=== PATIENT | male | born 1935 | race Caucasian/White ===

== ENCOUNTER 2016-06-17 16:20 | Inpatient (IN) | payer MEDICARE, OTHER ==
[~2016-06-17] VITALS: Ht 162.6 cm; Wt 96.7 kg
[2016-06-17 16:24] VITALS: BP 146/65; PULSE 86; RESP 24; TEMP 98.1; O2SAT 89
[2016-06-17] MEDS ORDERED: SODIUM CHLOR 0.9% 1000 ML INJ 1,000 ML IV SCH (16:46)
[2016-06-17] MEDS ORDERED: METF1000 PO (16:52)
[2016-06-17] MEDS ORDERED: ASPI81CH CHEW (16:52)
[2016-06-17] MEDS ORDERED: LANTUS2P SQ (16:52)
[2016-06-17] MEDS ORDERED: bp med (16:52)
--- NOTE | 2016-06-17 16:56 | PD ---
HPI Chief Complaint: Abdominal Pain Time Seen by Provider: 16:49 Travel History International Travel<30 days: No Contact w/Intl Traveler<30days: No Traveled to known affect area: No History of Present Illness HPI 80-year-old male presents with PMH of DM, HTN presents to the ED for evaluation of 3 day history of right upper quadrant abdominal pain. 9/10 maximally, 4/10 on presentation. Gradual onset. Patient endorses anorexia, subjective fevers, occasional dysuria. He denies nausea, vomiting, changes in bowel habits. Denies chest pain, shortness of breath, palpitations. Last bowel movement this morning, well formed, nonbloody. Patient is a daily or "every few days" drinker. Patient endorses history of laparoscopic cholecystectomy in spring. He is on vacation from [place]. NKDA. [facility] Social History Tobacco Use: No Allergies-Medications (Allergen,Severity, Reaction): Coded Allergies: No Known Allergies (Unverified , 06/17/16) Reported Meds & Prescriptions Reported Meds & Active Scripts Active Reported [bp med] Aspirin 81 Mg Chew 81 Mg CHEW DAILY Lantus Inj (Insulin Glargine) 1,000 Unit/10 Ml Vial 16 Units SQ HS Metformin (Metformin HCl) 1,000 Mg Tab 1,000 Mg PO BIDPC With meals Review of Systems Except as stated in HPI: all other systems reviewed are Neg Physical Exam Narrative GENERAL: Well-nourished, well-developed elderly white male in no acute distress. SKIN: Warm and dry. Faintly jaundiced. Small well-healed scars on the abdomen , consistent with laparoscopic ports, without signs of infection. HEAD: Normocephalic. Right-sided hearing aid in place. EYES: No scleral icterus. No injection or drainage. NECK: Supple, trachea midline. No JVD or lymphadenopathy. CARDIOVASCULAR: Regular rate and rhythm without murmurs, gallops, or rubs. RESPIRATORY: Breath sounds clear and equal bilaterally. No accessory muscle use. GASTROINTESTINAL: Abdomen protuberant, soft , mildly distended. Tender to palpation in the suprapubic area and right upper quadrant. MUSCULOSKELETAL: No cyanosis, or edema. The patient is ambulatory, moves extremities spontaneously. BACK: Nontender without obvious deformity. No CVA tenderness. Data Data Last Documented VS Vital Signs Date Time Temp Pulse Resp B/P Pulse Ox O2 Delivery O2 Flow Rate FiO2 1/13/17 19:21 90 Room Air 06/17/16 19:21 2 06/17/16 16:24 98.1 86 24 146/65 Orders Complete Blood Count With Diff (06/17/16 16:24) Comprehensive Metabolic Panel (06/17/16 16:24) Urinalysis - C+S If Indicated (06/17/16 16:24) Iv Access Insert/Monitor (06/17/16 16:24) Oxygen Administration (06/17/16 16:24) Oximetry (06/17/16 16:24) Lipase (06/17/16 16:24) Electrocardiogram (06/17/16 ) Lactic Acid (06/17/16 16:24) Blood Glucose (06/17/16 16:46) Ondansetron Inj (Zofran Inj) (06/17/16 17:00) Morphine Inj (Morphine Inj) (06/17/16 17:00) Ct Abd/Pel W Iv Contrast(Rout) (06/17/16 16:46) Sodium Chlor 0.9% 1000 Ml Inj (Ns 1000 M (06/17/16 16:46) Iohexol 350 Inj (Omnipaque 350 Inj) (06/17/16 17:58) Sodium Chlor 0.9% 1000 Ml Inj (Ns 1000 M (06/17/16 19:00) NPO (06/17/16 18:51) Piperacil-Tazo 3.375 Gm Premix (Zosyn 3. (06/17/16 19:00) Labs Laboratory Tests Test 06/17/16 06/17/16 16:30 18:53 White Blood Count 11.7 TH/MM3 Red Blood Count 4.53 MIL/MM3 Hemoglobin 13.4 GM/DL Hematocrit 39.1 % Mean Corpuscular Volume 86.4 FL Mean Corpuscular Hemoglobin 29.5 PG Mean Corpuscular Hemoglobin 34.1 % Concent Red Cell Distribution Width 13.9 % Platelet Count 138 TH/MM3 Mean Platelet Volume 9.3 FL Neutrophils (%) (Auto) 87.1 % Lymphocytes (%) (Auto) 4.7 % Monocytes (%) (Auto) 8.0 % Eosinophils (%) (Auto) 0.0 % Basophils (%) (Auto) 0.2 % Neutrophils # (Auto) 10.2 TH/MM3 Lymphocytes # (Auto) 0.6 TH/MM3 Monocytes # (Auto) 0.9 TH/MM3 Eosinophils # (Auto) 0.0 TH/MM3 Basophils # (Auto) 0.0 TH/MM3 CBC Comment DIFF FINAL Differential Comment Sodium Level 132 MEQ/L Potassium Level 3.3 MEQ/L Chloride Level 97 MEQ/L Carbon Dioxide Level 22.9 MEQ/L Anion Gap 12 MEQ/L Blood Urea Nitrogen 17 MG/DL Creatinine 0.91 MG/DL Estimat Glomerular Filtration 80 ML/MIN Rate Random Glucose 181 MG/DL Lactic Acid Level 2.2 mmol/L Calcium Level 9.5 MG/DL Total Bilirubin 6.6 MG/DL Aspartate Amino Transf 72 U/L (AST/SGOT) Alanine Aminotransferase 168 U/L (ALT/SGPT) Alkaline Phosphatase 138 U/L Total Protein 7.4 GM/DL Albumin 3.2 GM/DL Lipase 75 U/L Urine Color DARK-YELLOW Urine Turbidity HAZY Urine pH 6.0 Urine Specific [place] Urine Protein 30 mg/dL Urine Glucose (UA) NEG mg/dL Urine Ketones NEG mg/dL Urine Occult Blood TRACE Urine Nitrite NEG Urine Bilirubin MOD Urine Urobilinogen 2.0 MG/DL Urine Leukocyte Esterase NEG Urine RBC 17 /hpf Urine WBC 6 /hpf Urine Squamous Epithelial <1 /hpf Cells Microscopic Urinalysis Comment CULT NOT INDICATED MDM Medical Decision Making Medical Screen Exam Complete: Yes Emergency Medical Condition: Yes Differential Diagnosis Biliary colic versus pancreatitis versus common duct obstruction versus cholangitis versus urinary tract infection versus gastritis versus enteritis versus other Narrative Course 80-year-old male presents with PMH of DM, HTN presents to the ED for evaluation of 3 day history of right upper quadrant abdominal pain. 02/12 maximally, 4/10 on presentation. Gradual onset. Patient endorses anorexia, subjective fevers, occasional dysuria. He denies nausea, vomiting, changes in bowel habits. Denies chest pain, shortness of breath, palpitations. Last bowel movement this morning, well formed, nonbloody. Patient is a daily or "every few days" drinker. Patient endorses history of laparoscopic cholecystectomy in spring. He is on vacation from [place]. Vitals reviewed. Physical exam reveals a nontoxic-appearing, faintly jaundiced white male in no acute distress. Chest is clear to auscultation bilaterally. The abdomen is tender in the right upper quadrant and suprapubic areas. Remaining physical exam unremarkable. IV was established. Patient was administered morphine and Zofran. CBC: WBC 11.7. Hemoglobin 13.4. BMP: Sodium 132, chloride 97, potassium 3.3 Lactic 2.2. LFTs: Bilirubin 6.6, AST 72, ALT 168. Alkaline phosphatase 138. CT abdomen and pelvis: 1. Dilated intra and extrahepatic biliary ductal dilatation with a questionable filling defect at the distal common bile duct. This could be further evaluated with an ERCP or an MRCP. The dilatation of the bile duct can be secondary to a reservoir phenomenon following cholecystectomy. 2. Fatty infiltration of the liver. 3. Scattered colonic diverticula in the sigmoid region. The patient, workup and plan of care were discussed with Dr. Noonan who agrees. Call placed to the on-call animal bounty hunter. I spoke with Dr. Bonilla who requests IV antibiotics, the patient be made nothing by mouth consented for ERCP , planned procedure tomorrow morning. GI consult placed. IV Zosyn administered. I spoke with Dr. Esparza who agrees to accept the patient to the medical service. See GI medicine notes for disposition. Sepsis Criteria Severe Sepsis (+one): Lactate >2 Diagnosis Primary Impression: Common bile duct obstruction Additional Impressions: Hyperbilirubinemia Elevated lactic acid level Aileen Lewis Jun 17, 2016 16:56
[2016-06-17] MEDS ORDERED: ONDANSETRON HCL 4 MG/2 ML VIAL IV PUSH ONE (17:00)
[2016-06-17] MEDS ORDERED: MORPHINE SULFATE 4 MG/ML INJ IV PUSH ONE (17:00)
[2016-06-17 17:06] LABS: AUTOMATED NEUTROPHIL # 10.2 TH/MM3 (1.8-7.7); BASOPHIL % 0.2 % (0.0-2.0); HEMATOCRIT 39.1 % (39.0-51.0); HEMO FLAGS DIFF FINAL; LYMPH % 4.7 % (9.0-44.0); LYMPHOCYTE # 0.6 TH/MM3 (1.0-4.8); MEAN CELL VOLUME 86.4 FL (80.0-100.0); MEAN CORPUSCULAR HEMOGLOBIN 29.5 PG (27.0-34.0); MEAN CORPUSCULAR HGB CONC 34.1 % (32.0-36.0); NEUT % 87.1 % (16.0-70.0); PLATELET COUNT 138 TH/MM3 (150-450); RED BLOOD COUNT 4.53 MIL/MM3 (4.50-5.90); RED CELL DISTRIBUTION WIDTH 13.9 % (11.6-17.2); WHITE BLOOD COUNT 11.7 TH/MM3 (4.0-11.0)
[2016-06-17 17:21] LABS: ANION GAP 12 MEQ/L (5-15); BICARBONATE 22.9 MEQ/L (21.0-32.0); BLOOD UREA NITROGEN 17 MG/DL (7-18); CHLORIDE 97 MEQ/L (98-107); POTASSIUM 3.3 MEQ/L (3.5-5.1); SODIUM (NA) 132 MEQ/L (136-145)
[2016-06-17 17:28] LABS: ALKALINE PHOSPHATASE 138 U/L (45-117); ALT (GPT) 168 U/L (12-78); AST (GOT) 72 U/L (15-37); GLOMERULAR FILTRATION RATE 80 ML/MIN (>89); TOTAL BILIRUBIN ADULT 6.6 MG/DL (0.2-1.0)
[2016-06-17] MEDS ORDERED: IOHEXOL 350 MG/ML 10 ML VIAL (for RAD DIAG) IV ONE (17:58)
--- NOTE | 2016-06-17 18:28 | RADRPT ---
EXAM DATE/TIME: 06/17/2016 17:54 [facility] COMPARISON: No previous studies available for comparison. INDICATIONS : Bilateral upper quadrant abdominal pain for 3 days. IV CONTRAST: 91 cc Omnipaque 350 (iohexol) IV ORAL CONTRAST: No oral contrast ingested. RADIATION DOSE: 14.80 CTDIvol (mGy) MEDICAL HISTORY : Hypertension. Diabetes mellitus type 2. SURGICAL HISTORY : Cholecystectomy. ENCOUNTER: Initial ACUITY: 3 days PAIN SCALE: 5/10 LOCATION: Bilateral upper quadrant Abdomen/pelvis TECHNIQUE: Volumetric scanning of the abdomen and pelvis was performed. Using automated exposure control and adjustment of the mA and/or kV according to patient size, radiation dose was kept as low as reasonably achievable to obtain optimal diagnostic quality images. FINDINGS: There is intra and extrahepatic biliary ductal dilatation with the common duct measurin g up to 1.4 cm. The patient is status post cholecystectomy and this may reflect a reservoir phenomen on. There is some questionable increased density at the distal common bile duct seen on the axial i mages. A distal obstruction cannot be excluded. There is diffuse decreased attenuation of the liver consistent with diffuse fatty infiltration. The spleen, adrenal glands and kidneys are unremarkable. The pancreatic duct is mildly prominent measuri ng 3 mm. The pancreas is otherwise normal. There are mildly enlarged lymph nodes seen in the celiac region measuring up to 2.3 x 1.4 cm. These are nonspecific. There are scattered diverticula seen in the sigmoid region. Significant inflammatory change is not se en. Significantly dilated or thickened bowel is not appreciated. There is scattered atherosclerotic calcifications seen at the aorta but no aneurysm is present. Pelvic mass is not seen. There is some increased density seen at the posterior lung bases likely representing dependent atelec tasis. Otherwise the lung bases are grossly clear. Coronary artery calcifications are present. The re is degenerative change in the lumbar spine. CONCLUSION: 1. Dilated intra and extrahepatic biliary ductal dilatation with a questionable filling defect at the distal common bile duct. This could be further evaluated with an ERCP or an MRCP. The dilatation o f the bile duct can be secondary to a reservoir phenomenon following cholecystectomy. 2. Fatty infiltration of the liver. 3. Scattered colonic diverticula in the sigmoid region. Casey Ruvalcaba MD on June 17, 2016 at 18:04 Board Certified Radiologist. This report was verified electronically.
[2016-06-17] MEDS ORDERED: PIPERACIL-TAZO 3.375 GM PREMIX 50 ML IV ONE (19:00)
[2016-06-17] MEDS ORDERED: SODIUM CHLOR 0.9% 1000 ML INJ 1,000 ML IV ONE (19:00)
[2016-06-17 19:18] LABS: BLOOD, URINE TRACE (NEG); COMMENT (UR) CULT NOT INDICATED; CULTURE IF INDICATED CULT NOT INDICATED; GLUCOSE,URINE NEG (NEG); KETONE, URINE NEG (NEG); NITRITE,URINE NEG (NEG); SQUAMOUS EPITHELIAL CELL URINE <1 /hpf (0-5); URINE COLOR DARK-YELLOW (YELLW/STRAW)
[2016-06-17 19:21] VITALS: O2SAT 90
[2016-06-17] MEDS ORDERED: SODIUM CHLORIDE 0.9% FLUSH 5 ML FLUSH FLUSH PRN (19:30)
[2016-06-17] MEDS ORDERED: BISACODYL 10 MG SUPP PR PRN (19:30)
[2016-06-17] MEDS ORDERED: ACETAMINOPHEN 325 MG TAB PO PRN (19:30)
[2016-06-17] MEDS ORDERED: GLUCAGON 1 MG/ML VIAL OTHER PRN (19:30)
[2016-06-17] MEDS ORDERED: ONDANSETRON HCL 4 MG/2 ML VIAL IVP PRN (19:30)
[2016-06-17] MEDS ORDERED: DEXTROSE 50% IN WATER 50 ML VIAL(D50) IV PUSH PRN (19:30)
--- NOTE | 2016-06-17 19:34 | HHI.HP ---
[facility] Non-Staff Admission Diagnosis lactic acidosis, hyperbilirubinemia, possible CBD obstruction Diagnoses: (1) Hyperbilirubinemia Diagnosis: Principal (2) Common bile duct obstruction Diagnosis: Principal (3) Lactic acidosis Diagnosis: Principal (4) Leukocytosis Diagnosis: Principal (5) DM (diabetes mellitus) Diagnosis: Principal Travel History International Travel<30 Days: No Contact w/Intl Traveler <30 Da: No Traveled to Known Affected Are: No History of Present Illness This is an 80-year-old male with a PMH of HTN and DM who came to the ER with complaints of abdominal pain x3 days w/ associated subjective fever, chills. Denies nausea, vomiting or diarrhea. On arrival, BP 146/65, HR 86, O2 sat 98% on RA, Afebrile. WBC 11.7. Platelets 138, no previous labs for comparison. K + 3.3. Lactic Acid 2.2. LFTs elevated, no previous labs for comparison. CT Abd/Pelvis w/ dilated intra-and extrahepatic biliary ductal dilatation with questionable filling defect at distal CBD. Dr. Bonilla w/ GI consulted by ER physician, recommended IV Abx and will eval in am for ERCP. S/p Zosyn IV in ER. Review of Systems Other ROS: 14 point review of systems otherwise negative. Past Family Social History Past Medical History PMH: HTN and DM Past Surgical History PAST SURGICAL HISTORY: Tonsillectomy, Cholecystectomy Allergies: Coded Allergies: No Known Allergies (Unverified , 06/17/16) Family History PAST FAMILY HISTORY: Reviewed, positive for DM. Social History PAST SOCIAL HISTORY: Negative for tobacco or drugs. Drinks occasionally. Physical Exam Vital Signs Vital Signs Date Time Temp Pulse Resp B/P Pulse Ox O2 Delivery O2 Flow Rate FiO2 06/17/16 19:21 90 Room Air 06/17/16 19:21 97 Nasal Cannula 2 06/17/16 16:48 98 Room Air 06/17/16 16:24 98.1 86 24 146/65 89 Room Air Physical Exam PE: GENERAL: Elderly male in no acute distress. HEENT: PERRLA, EOMI. No scleral icterus or conjunctival pallor. No lid lag or facial droop. Jaundice. CARDIOVASCULAR: Regular rate and rhythm. No obvious murmurs to auscultation. No chest tenderness to palpation. RESPIRATORY: No obvious rhonchi or wheezing. Clear to auscultation. Breath sounds equal bilaterally. GASTROINTESTINAL: Abdomen soft, mild generalized tenderness to palpation, nondistended. BS normal. MUSCULOSKELETAL: Extremities without clubbing, cyanosis, or edema. No obvious deformities. NEUROLOGICAL: Awake, alert and oriented x4. No focal neurologic deficits. Moving both upper and lower extremities spontaneously. Laboratory Laboratory Tests Test 06/17/16 06/17/16 16:30 18:53 White Blood Count 11.7 Red Blood Count 4.53 Hemoglobin 13.4 Hematocrit 39.1 Mean Corpuscular Volume 86.4 Mean Corpuscular Hemoglobin 29.5 Mean Corpuscular Hemoglobin 34.1 Concent Red Cell Distribution Width 13.9 Platelet Count 138 Mean Platelet Volume 9.3 Neutrophils (%) (Auto) 87.1 Lymphocytes (%) (Auto) 4.7 Monocytes (%) (Auto) 8.0 Eosinophils (%) (Auto) 0.0 Basophils (%) (Auto) 0.2 Neutrophils # (Auto) 10.2 Lymphocytes # (Auto) 0.6 Monocytes # (Auto) 0.9 Eosinophils # (Auto) 0.0 Basophils # (Auto) 0.0 CBC Comment DIFF FINAL Differential Comment Sodium Level 132 Potassium Level 3.3 Chloride Level 97 Carbon Dioxide Level 22.9 Anion Gap 12 Blood Urea Nitrogen 17 Creatinine 0.91 Estimat Glomerular Filtration 80 Rate Random Glucose 181 Lactic Acid Level 2.2 Calcium Level 9.5 Total Bilirubin 6.6 Aspartate Amino Transf 72 (AST/SGOT) Alanine Aminotransferase 168 (ALT/SGPT) Alkaline Phosphatase 138 Total Protein 7.4 Albumin 3.2 Lipase 75 Urine Color DARK-YELLOW Urine Turbidity HAZY Urine pH 6.0 Urine Specific [employer] Urine Protein 30 Urine Glucose (UA) NEG Urine Ketones NEG Urine Occult Blood TRACE Urine Nitrite NEG Urine Bilirubin MOD Urine Urobilinogen 2.0 Urine Leukocyte Esterase NEG Urine RBC 17 Urine WBC 6 Urine Squamous Epithelial <1 Cells Microscopic Urinalysis Comment CULT NOT INDICATED Result Diagram: 06/17/16 1630 06/17/16 1630 Assessment and Plan Problem List: (1) Hyperbilirubinemia ICD Code: E80.6 Status: Acute (2) Common bile duct obstruction ICD Code: K83.1 Status: Acute (3) Lactic acidosis ICD Code: E87.2 Status: Acute (4) Leukocytosis ICD Code: D72.829 Status: Acute (5) DM (diabetes mellitus) ICD Code: E11.9 Status: Acute Assessment and Plan A/P: 1. CBD Obstruction: c/o abdominal pain x2-3 days, CT Abd/Pelvis w/ dilated intra-and extra hepatic biliary ductal dilatation with questionable filling defect at distal CBD, images reviewed by me. Dr. Bonilla consulted by ER physician, recommendation for IV Abx w/ plan for ERCP in am. Analgesics/ antiemetics as needed. NPO, IVF. 2. Hyperbilirubinemia: secondary to above w/ possible CBD obstruction, repeat labs in am. 3. Lactic Acidosis: Lactate 2.2. WBC 11, however lactic acidosis not seemingly related to infection. IVF, repeat labs in am. 4. DM: Sliding scale w/ Accu-Cheks. 5. DVT Prophylaxis: SCD/Teds. 6. Social work for d/c planning as needed. 7. Case discussed w/ ER physician at length. Physician Certification 2 Midnight Certification Type: Admission for Inpatient Services Order for Inpatient Services The services are ordered in accordance with Medicare regulations or non- Medicare payer requirements, as applicable. In the case of services not specified as inpatient-only, they are appropriately provided as inpatient services in accordance with the 2-midnight benchmark. Estimated LOS (days): 2 days is the estimated time the patient will need to remain in the hospital, assuming treatment plan goals are met and no additional complications. Post-Hospital Plan: Not yet determined Sera Esparza MD Jun 17, 2016 19:34
[2016-06-17 20:23] VITALS: BP 156/63
[2016-06-17] MEDS: SODIUM CHLOR 0.9% 1000 ML INJ 1,000 ML IV SCH (20:26)
[2016-06-17] MEDS: INSULIN ASPART SUPPLEMENTAL SCALE SQ SCH (21:00)
[2016-06-17 21:25] VITALS: BP 131/63; PULSE 88; RESP 20; TEMP 98; O2SAT 98
[2016-06-17] MEDS: MORPHINE SULFATE 4 MG/ML INJ IV PRN (22:11)
[2016-06-17] MEDS: SODIUM CHLORIDE 0.9% FLUSH 5 ML FLUSH FLUSH SCH (22:12)
[2016-06-17 22:49] VITALS: O2SAT 92
[2016-06-18] VITALS (7 sets, daily range): BP systolic 125–138; BP diastolic 63–74; PULSE 78–96; RESP 18–24; TEMP 97.7–100.1; O2SAT 90–94
[2016-06-18] MEDS: PIPERACIL-TAZO 3.375 GM PREMIX 50 ML IV SCH ×4 (00:24→18:16)
[2016-06-18] MEDS: SODIUM CHLOR 0.9% 1000 ML INJ 1,000 ML IV SCH ×3 (05:36→20:45)
[2016-06-18] MEDS: MORPHINE SULFATE 4 MG/ML INJ IV PRN ×3 (05:45→20:46)
[2016-06-18 06:38] LABS: AUTOMATED NEUTROPHIL # 5.8 TH/MM3 (1.8-7.7); BASOPHIL % 0.3 % (0.0-2.0); EOSINOPHIL % 0.2 % (0.0-4.0); HEMATOCRIT 36.3 % (39.0-51.0); HEMO FLAGS DIFF FINAL; LYMPH % 8.8 % (9.0-44.0); LYMPHOCYTE # 0.6 TH/MM3 (1.0-4.8); MEAN CELL VOLUME 87.3 FL (80.0-100.0); MEAN CORPUSCULAR HEMOGLOBIN 29.9 PG (27.0-34.0); MEAN CORPUSCULAR HGB CONC 34.2 % (32.0-36.0); MONO % 9.7 % (0.0-8.0); PLATELET COUNT 120 TH/MM3 (150-450); RED BLOOD COUNT 4.15 MIL/MM3 (4.50-5.90); RED CELL DISTRIBUTION WIDTH 14.2 % (11.6-17.2); WHITE BLOOD COUNT 7.1 TH/MM3 (4.0-11.0)
[2016-06-18] MEDS: INSULIN ASPART SUPPLEMENTAL SCALE SQ SCH ×4 (07:00→21:10)
[2016-06-18 07:11] LABS: ALKALINE PHOSPHATASE 128 U/L (45-117); ALT (GPT) 123 U/L (12-78); ANION GAP 11 MEQ/L (5-15); AST (GOT) 61 U/L (15-37); BICARBONATE 21.9 MEQ/L (21.0-32.0); BLOOD UREA NITROGEN 16 MG/DL (7-18); CHLORIDE 103 MEQ/L (98-107); GLOMERULAR FILTRATION RATE 102 ML/MIN (>89); POTASSIUM 3.3 MEQ/L (3.5-5.1); SODIUM (NA) 136 MEQ/L (136-145); TOTAL BILIRUBIN ADULT 6.7 MG/DL (0.2-1.0)
[2016-06-18] MEDS: SODIUM CHLORIDE 0.9% FLUSH 5 ML FLUSH FLUSH SCH ×2 (09:34→20:46)
--- NOTE | 2016-06-18 09:40 | PD.CONS ---
HPI History of Present Illness This is a very pleasant 80 year old white male with past medical history of HTN , DM, Cholecystectomy in October due to stones is here with complaints of acute severe abdominal pain across the upper region, this is 10 on the scale from 0-10 , constant, grabbing in nature, began on Monday. He tried management at home with radha-seltzer, Tums, Ibuprofen with out much relief so he came to the hospital. He also noticed some yellow discoloration around the eyes. He reports some associated subjective fever, chills, and dark urine. Denies nausea, vomiting or diarrhea. On admission, labs revealed WBC 11.7. K 3.3. Lactic Acid 2.2. LFTs elevated, Hyperbilirubinemia, no previous labs for comparison. CT Abd/Pelvis w/ dilated intra-and extrahepatic biliary ductal dilatation with questionable filling defect at distal CBD. (Yaquelin Galeas) PFSH Past Medical History PMH: HTN and DM Past Surgical History PAST SURGICAL HISTORY: Tonsillectomy, Cholecystectomy (Yaquelin Galeas) Coded Allergies: No Known Allergies (Unverified , 06/17/16) Medications Current Medications Medications (Trade) Dose Ordered Sig/Lionel Route Start Time Stop Time Status Last Admin (D50w (Vial) Inj) 25 ml UNSCH PRN IV PUSH 06/17/16 19:30 Glucagon 1 mg 1 mg UNSCH PRN OTHER 06/17/16 19:30 Piperacillin Sod/ Tazobactam Sod 50 ml @ 100 mls/hr Q6H IV 06/18/16 01:00 06/18/16 05:35 (NS 1000 ml Inj) 1,000 ml @ 100 mls/hr Q10H IV 06/17/16 20:00 06/18/16 05:36 (NS Flush) 2 ml UNSCH PRN FLUSH 06/17/16 19:30 (NS Flush) 2 ml BID FLUSH 06/17/16 21:00 06/17/16 22:12 (Zofran Inj) 4 mg Q6H PRN IVP 06/17/16 19:30 (Dulcolax Supp) 10 mg DAILY PRN NE 06/17/16 19:30 (Tylenol) 650 mg Q6H PRN PO 06/17/16 19:30 (Morphine Inj) 2 mg Q3H PRN IV 06/17/16 19:30 06/18/16 05:45 (Roxicodone) 5 mg Q4H PRN PO 06/17/16 19:30 Family History PAST FAMILY HISTORY: Reviewed, positive for DM. Social History PAST SOCIAL HISTORY: Negative for tobacco or drugs. Drinks occasionally. ( Yaquelin Galeas) Review of Systems Constitutional: COMPLAINS OF: Fever, Chills Endocrine: DENIES: Polyuria Eyes: DENIES: Double Vision Ears, nose, mouth, throat: DENIES: Hoarseness Respiratory: COMPLAINS OF: Shortness of breath Cardiovascular: DENIES: Lower Extremity Edema Gastrointestinal: DENIES: Nausea, Vomiting, Difficulty Swallowing, Anorexia, Odynophagia, Swelling of Abdomen, Heartburn, Hematemesis Genitourinary: DENIES: Hematuria Musculoskeletal: DENIES: Joint Swelling Integumentary: COMPLAINS OF: Jaundice, DENIES: Rash Hematologic/lymphatic: DENIES: Bruising Immunologic/allergic: DENIES: Eczema Neurologic: DENIES: Abnormal gait Psychiatric: DENIES: Anxiety (Yaquelin Galeas) GI Exam Vitals I&O Vital Signs Date Time Temp Pulse Resp B/P Pulse Ox O2 Delivery O2 Flow Rate FiO2 06/18/16 04:00 Nasal Cannula 4.00 06/18/16 04:00 100.1 96 18 136/67 91 06/18/16 01:06 99.2 87 20 125/74 94 06/18/16 00:00 Nasal Cannula 4.00 06/17/16 22:49 92 Nasal Cannula 4.00 06/17/16 22:00 Nasal Cannula 2.00 06/17/16 21:25 98.0 88 20 131/63 98 06/17/16 20:23 86 14 156/63 95 Nasal Cannula 2 06/17/16 19:21 90 Room Air 06/17/16 19:21 97 Nasal Cannula 2 06/17/16 16:48 98 Room Air 06/17/16 16:24 98.1 86 24 146/65 89 Room Air I/O 06/17/16 06/17/16 06/17/16 06/18/16 06/18/16 06/18/16 07:00 15:00 23:00 07:00 15:00 23:00 Intake Total 1495 ml Output Total 500 ml Balance 995 ml Intake Oral 0 ml IV Total 1495 ml Output Urine Total 500 ml Imaging Last Impressions Abdomen/Pelvis CT 06/17/16 1646 Signed Impressions: Service Date/Time: Friday, June 17, 2016 17:54 - CONCLUSION: 1. Dilated intra and extrahepatic biliary ductal dilatation with a questionable filling defect at the distal common bile duct. This could be further evaluated with an ERCP or an MRCP. The dilatation of the bile duct can be secondary to a reservoir phenomenon following cholecystectomy. 2. Fatty infiltration of the liver. 3. Scattered colonic diverticula in the sigmoid region. Casey Ruvalcaba MD Laboratory Test 06/17/16 06/17/16 06/18/16 16:30 18:53 06:12 White Blood Count 11.7 TH/MM3 7.1 TH/MM3 Red Blood Count 4.53 MIL/MM3 4.15 MIL/MM3 Hemoglobin 13.4 GM/DL 12.4 GM/DL Hematocrit 39.1 % 36.3 % Mean Corpuscular Volume 86.4 FL 87.3 FL Mean Corpuscular Hemoglobin 29.5 PG 29.9 PG Mean Corpuscular Hemoglobin 34.1 % 34.2 % Concent Red Cell Distribution Width 13.9 % 14.2 % Platelet Count 138 TH/MM3 120 TH/MM3 Mean Platelet Volume 9.3 FL 9.4 FL Neutrophils (%) (Auto) 87.1 % 81.0 % Lymphocytes (%) (Auto) 4.7 % 8.8 % Monocytes (%) (Auto) 8.0 % 9.7 % Eosinophils (%) (Auto) 0.0 % 0.2 % Basophils (%) (Auto) 0.2 % 0.3 % Neutrophils # (Auto) 10.2 TH/MM3 5.8 TH/MM3 Lymphocytes # (Auto) 0.6 TH/MM3 0.6 TH/MM3 Monocytes # (Auto) 0.9 TH/MM3 0.7 TH/MM3 Eosinophils # (Auto) 0.0 TH/MM3 0.0 TH/MM3 Basophils # (Auto) 0.0 TH/MM3 0.0 TH/MM3 CBC Comment DIFF FINAL DIFF FINAL Differential Comment Sodium Level 132 MEQ/L 136 MEQ/L Potassium Level 3.3 MEQ/L 3.3 MEQ/L Chloride Level 97 MEQ/L 103 MEQ/L Carbon Dioxide Level 22.9 MEQ/L 21.9 MEQ/L Anion Gap 12 MEQ/L 11 MEQ/L Blood Urea Nitrogen 17 MG/DL 16 MG/DL Creatinine 0.91 MG/DL 0.74 MG/DL Estimat Glomerular Filtration 80 ML/MIN 102 ML/MIN Rate Random Glucose 181 MG/DL 117 MG/DL Lactic Acid Level 2.2 mmol/L 0.8 mmol/L Calcium Level 9.5 MG/DL 8.1 MG/DL Total Bilirubin 6.6 MG/DL 6.7 MG/DL Aspartate Amino Transf 72 U/L 61 U/L (AST/SGOT) Alanine Aminotransferase 168 U/L 123 U/L (ALT/SGPT) Alkaline Phosphatase 138 U/L 128 U/L Total Protein 7.4 GM/DL 6.4 GM/DL Albumin 3.2 GM/DL 2.6 GM/DL Lipase 75 U/L Urine Color DARK-YELLOW Urine Turbidity HAZY Urine pH 6.0 Urine Specific [place] Urine Protein 30 mg/dL Urine Glucose (UA) NEG mg/dL Urine Ketones NEG mg/dL Urine Occult Blood TRACE Urine Nitrite NEG Urine Bilirubin MOD Urine Urobilinogen 2.0 MG/DL Urine Leukocyte Esterase NEG Urine RBC 17 /hpf Urine WBC 6 /hpf Urine Squamous Epithelial <1 /hpf Cells Microscopic Urinalysis Comment CULT NOT INDICATED Physical Examination HEENT: Pupils round and reactive to light; normocephalic; atraumatic; + jaundice. NECK: Neck is supple, no JVD, no lymphadenopathy. CHEST: Chest is clear to auscultation and percussion. CARDIAC: Regular rate and rhythm with no murmur gallop or rubs. ABDOMEN: Soft, nondistended, epigastric tenderness; no hepatosplenomegaly; bowel sounds are present in all four quadrants. EXTREMITIES: No clubbing, cyanosis, or edema. SKIN: Normal; no rash; + jaundice. MENSWEAR SALESPERSON: No focal deficits; alert and oriented times three. (Adal,Ishaawneno HIV PREVENTION SPECIALIST) Assessment and Plan Plan - CBD Obstruction: abdominal pain across the epigastric area x2-3 days, CT Abd /Pelvis w/ dilated intra-and extra hepatic biliary ductal dilatation with questionable filling defect at distal CBD, elevated LFTs, bilirubin, patient is s/p cholecystectomy in October of 2015 due to gallstones, this is could be choledocholithiasis. ERCP today, abx, NPO - Elevated LFTs/ Hyperbilirubinemia (6.7): secondary to above w/ possible CBD obstruction, ERCP today, Zosyn - Lactic Acidosis/leukocytosis/ fever: Lactate 2.2. WBC 11, possible secondary to above - DM, HTN per attending Plan: - NPO - ERCP today - Cont. Zosyn - Monitor labs - Further recommendation to follow based on results above - Supportive care - Patient seen and examined by Dr. Bonilla and myself and this note is written on his behalf. (Yaquelin Galeas) Physician Comments Patient seen and examined Agree with above Continue with current supportive care Monitor labs ERCP tomorrow (Brennan Bonilla MD) Yaquelin Galeas Jun 18, 2016 09:39 Brennan Bonilla MD Jun 18, 2016 20:02
[2016-06-18] MEDS ORDERED: ENALAPRILAT 1.25 MG/ML VIAL IV PUSH PRN (10:30)
[2016-06-18] MEDS ORDERED: RESP: ALBUTEROL 2.5 MG/IPRATROPIUM 0.5 MG NEB (PRN) NEB (10:30)
--- NOTE | 2016-06-18 10:38 | HHI.PR ---
Subjective Remarks Follow-up CBD obstruction/hyperbilirubinemia 06/18/16-patient seen and examined, still some abdominal pain although controlled since admission. Currently nothing by mouth pending ERCP Objective Vitals Vital Signs Date Time Temp Pulse Resp B/P Pulse Ox O2 Delivery O2 Flow Rate FiO2 06/18/16 08:00 98.5 90 24 134/63 90 06/18/16 04:00 Nasal Cannula 4.00 06/18/16 04:00 100.1 96 18 136/67 91 06/18/16 01:06 99.2 87 20 125/74 94 06/18/16 00:00 Nasal Cannula 4.00 06/17/16 22:49 92 Nasal Cannula 4.00 06/17/16 22:00 Nasal Cannula 2.00 06/17/16 21:25 98.0 88 20 131/63 98 06/17/16 20:23 86 14 156/63 95 Nasal Cannula 2 06/17/16 19:21 90 Room Air 06/17/16 19:21 97 Nasal Cannula 2 06/17/16 16:48 98 Room Air 06/17/16 16:24 98.1 86 24 146/65 89 Room Air I/O 06/17/16 06/17/16 06/17/16 06/18/16 06/18/16 06/18/16 07:00 15:00 23:00 07:00 15:00 23:00 Intake Total 1495 ml Output Total 500 ml Balance 995 ml Intake Oral 0 ml IV Total 1495 ml Output Urine Total 500 ml Result Diagram: 06/18/16 0612 06/18/16 0612 Imaging Last Impressions Abdomen/Pelvis CT 06/17/16 1646 Signed Impressions: Service Date/Time: Friday, June 17, 2016 17:54 - CONCLUSION: 1. Dilated intra and extrahepatic biliary ductal dilatation with a questionable filling defect at the distal common bile duct. This could be further evaluated with an ERCP or an MRCP. The dilatation of the bile duct can be secondary to a reservoir phenomenon following cholecystectomy. 2. Fatty infiltration of the liver. 3. Scattered colonic diverticula in the sigmoid region. Casey Ruvalcaba MD Objective Remarks GENERAL: NAD SKIN: Warm and dry. HEAD: Normocephalic. EYES: No scleral icterus. No injection or drainage. NECK: Supple, trachea midline. No JVD or lymphadenopathy. CARDIOVASCULAR: Regular rate and rhythm without murmurs, gallops, or rubs. RESPIRATORY: Breath sounds equal bilaterally. No accessory muscle use. GASTROINTESTINAL: Abdomen soft, mildly tender, nondistended. +BS MUSCULOSKELETAL: No cyanosis, or edema. BACK: Nontender without obvious deformity. No CVA tenderness. A/P Problem List: (1) Hyperbilirubinemia ICD Code: E80.6 Status: Acute (2) Common bile duct obstruction ICD Code: K83.1 Status: Acute (3) Lactic acidosis ICD Code: E87.2 Status: Acute (4) Leukocytosis ICD Code: D72.829 Status: Acute (5) DM (diabetes mellitus) ICD Code: E11.9 Status: Acute Assessment and Plan 80-year-old male with 1. CBD Obstruction: CT Abd/Pelvis w/ dilated intra-and extra hepatic biliary ductal dilatation with questionable filling defect at distal CBD. Gastroenterology, Dr. Bonilla consulted . Plan for ERCP today 06/18/16, continue with Zosyn IV, Analgesics/antiemetics as needed. NPO, IVF. 2. Hyperbilirubinemia: secondary to above w/ possible CBD obstruction. Monitor T bili and CMP 3. Lactic Acidosis: Now resolved 4. DM: Sliding scale w/ Accu-Cheks. Check hemoglobin A1c 5. Hypokalemia: Replace electrolyte and monitor 6. DVT Prophylaxis: SCD/Teds. Bruno Palencia MD Jun 18, 2016 10:38
--- NOTE | 2016-06-18 14:15 | EKG ---
Date Performed: 06/17/2016 Time Performed: 16:36:19 PTAGE: 80 years EKG: ATRIAL FIBRILLATION WITH ABERRANT CONDUCTION OR VENTRICULAR PREMATURE COMPLEXES INDETERMINA TE AXIS PATTERN CONSISTENT WITH PULMONARY DISEASE INCOMPLETE RIGHT BUNDLE BRANCH BLOCK POSSIBLE RIGHT VENTRICULAR HYPERTROPHY ABNORMAL ECG NO PREVIOUS TRACING DOCTOR: Lalito Lyons Interpretating Date/Time 06/18/2016 14:11:12
[2016-06-18] MEDS ORDERED: POTASSIUM CL 40 MEQ/30 ML LIQ UDC PO ONE (16:00)
[2016-06-19] VITALS (7 sets, daily range): BP systolic 124–147; BP diastolic 60–77; PULSE 68–80; RESP 17–20; TEMP 97–98.5; O2SAT 30–95
[2016-06-19] MEDS: PIPERACIL-TAZO 3.375 GM PREMIX 50 ML IV SCH ×4 (00:07→18:07)
[2016-06-19] MEDS ORDERED: INSULIN HUMAN REGULAR 1,000 UNITS/10 ML VIAL SQ PRN (02:15)
[2016-06-19] MEDS: LACTATED RINGER'S 1000 ML IV SCH (02:15)
[2016-06-19] MEDS ORDERED: SODIUM CHLORID 0.9% 500 ML IV SCH (02:15)
[2016-06-19] MEDS: INSULIN ASPART SUPPLEMENTAL SCALE SQ SCH ×4 (05:30→21:00)
[2016-06-19] MEDS: MORPHINE SULFATE 4 MG/ML INJ IV PRN ×2 (05:30→21:11)
[2016-06-19] MEDS: SODIUM CHLOR 0.9% 1000 ML INJ 1,000 ML IV SCH ×2 (07:04→21:17)
[2016-06-19] MEDS: SODIUM CHLORIDE 0.9% FLUSH 5 ML FLUSH FLUSH SCH ×2 (07:53→21:00)
[2016-06-19 08:05] LABS: AUTOMATED NEUTROPHIL # 5.8 TH/MM3 (1.8-7.7); BASOPHIL % 0.3 % (0.0-2.0); EOSINOPHIL # 0.1 TH/MM3 (0-0.4); EOSINOPHIL % 1.2 % (0.0-4.0); HEMATOCRIT 36.8 % (39.0-51.0); HEMO FLAGS DIFF FINAL; LYMPH % 13.5 % (9.0-44.0); LYMPHOCYTE # 1.1 TH/MM3 (1.0-4.8); MEAN CELL VOLUME 87.2 FL (80.0-100.0); MEAN CORPUSCULAR HEMOGLOBIN 29.5 PG (27.0-34.0); MEAN CORPUSCULAR HGB CONC 33.8 % (32.0-36.0); MONO % 16.4 % (0.0-8.0); NEUT % 68.6 % (16.0-70.0); PLATELET COUNT 140 TH/MM3 (150-450); RED BLOOD COUNT 4.22 MIL/MM3 (4.50-5.90); RED CELL DISTRIBUTION WIDTH 14.3 % (11.6-17.2); WHITE BLOOD COUNT 8.4 TH/MM3 (4.0-11.0)
--- NOTE | 2016-06-19 08:15 | HHI.PR ---
Subjective Remarks Follow-up CBD obstruction/hyperbilirubinemia 06/18/16-patient seen and examined, still some abdominal pain although controlled since admission. Currently nothing by mouth pending ERCP 06/19/16-patient seen and examined. ERCP was postponed until today. Still with some abdominal pain. No nausea and vomiting. Currently nothing by mouth Objective Vitals Vital Signs Date Time Temp Pulse Resp B/P Pulse Ox O2 Delivery O2 Flow Rate FiO2 06/19/16 06:00 98.1 75 18 144/77 91 06/19/16 00:00 97.9 68 17 131/72 92 06/18/16 20:00 92 Nasal Cannula 4.00 06/18/16 20:00 97.7 80 18 137/72 92 06/18/16 20:00 84 06/18/16 16:00 98.2 78 24 138/64 92 06/18/16 12:00 99.0 83 24 138/69 92 06/18/16 08:15 Nasal Cannula 4.00 I/O 06/18/16 06/18/16 06/18/16 06/19/16 06/19/16 06/19/16 07:00 15:00 23:00 07:00 15:00 23:00 Intake Total 1495 ml 760 ml 240 ml 1535 ml Output Total 500 ml 375 ml 400 ml Balance 995 ml 385 ml 240 ml 1135 ml Intake Oral 0 ml 0 ml 240 ml 100 ml IV Total 1495 ml 760 ml 1435 ml Output Urine Total 500 ml 375 ml 400 ml # Voids 0 # Bowel Movements 0 0 0 Result Diagram: 06/19/16 0536 06/18/16 0612 Imaging Last Impressions Abdomen/Pelvis CT 06/17/16 1646 Signed Impressions: Service Date/Time: Friday, June 17, 2016 17:54 - CONCLUSION: 1. Dilated intra and extrahepatic biliary ductal dilatation with a questionable filling defect at the distal common bile duct. This could be further evaluated with an ERCP or an MRCP. The dilatation of the bile duct can be secondary to a reservoir phenomenon following cholecystectomy. 2. Fatty infiltration of the liver. 3. Scattered colonic diverticula in the sigmoid region. Casey Ruvalcaba MD Objective Remarks GENERAL: NAD SKIN: Warm and dry. HEAD: Normocephalic. EYES: No scleral icterus. No injection or drainage. NECK: Supple, trachea midline. No JVD or lymphadenopathy. CARDIOVASCULAR: Regular rate and rhythm without murmurs, gallops, or rubs. RESPIRATORY: Breath sounds equal bilaterally. No accessory muscle use. GASTROINTESTINAL: Abdomen soft, mildly tender, nondistended. +BS MUSCULOSKELETAL: No cyanosis, or edema. BACK: Nontender without obvious deformity. No CVA tenderness. A/P Problem List: (1) Hyperbilirubinemia ICD Code: E80.6 Status: Acute (2) Common bile duct obstruction ICD Code: K83.1 Status: Acute (3) Lactic acidosis ICD Code: E87.2 Status: Acute (4) Leukocytosis ICD Code: D72.829 Status: Acute (5) DM (diabetes mellitus) ICD Code: E11.9 Status: Acute Assessment and Plan 80-year-old male with 1. CBD Obstruction: CT Abd/Pelvis w/ dilated intra-and extra hepatic biliary ductal dilatation with questionable filling defect at distal CBD. Gastroenterology, Dr. Bonilla consulted . Plan for ERCP today 06/19/16, continue with Zosyn IV, Analgesics/antiemetics as needed. NPO, IVF. 2. Hyperbilirubinemia: secondary to above w/ possible CBD obstruction. Monitor T bili and CMP 3. Lactic Acidosis: Now resolved 4. DM: Sliding scale w/ Accu-Cheks. hemoglobin A1c pending 5. Hypokalemia: Replace electrolyte and monitor. BMP pending this a.m. 6. DVT Prophylaxis: SCD/Teds. Bruno Palencia MD Jun 19, 2016 08:15
[2016-06-19 08:29] LABS: ALKALINE PHOSPHATASE 140 U/L (45-117); TOTAL BILIRUBIN ADULT 7.9 MG/DL (0.2-1.0)
[2016-06-19 08:31] LABS: ALT (GPT) 116 U/L (12-78); ANION GAP 11 MEQ/L (5-15); AST (GOT) 82 U/L (15-37); BICARBONATE 22.5 MEQ/L (21.0-32.0); BLOOD UREA NITROGEN 16 MG/DL (7-18); CHLORIDE 106 MEQ/L (98-107); GLOMERULAR FILTRATION RATE 118 ML/MIN (>89); POTASSIUM 3.5 MEQ/L (3.5-5.1); SODIUM (NA) 139 MEQ/L (136-145)
[2016-06-19] MEDS ORDERED: SUGAMMADEX SODIUM 200 MG/2 ML VIAL IV PUSH ONE ×2 (10:41)
[2016-06-19] MEDS ORDERED: PROPOFOL 200 MG/20 ML AMP IV ONE (10:55)
[2016-06-19] MEDS ORDERED: IOHEXOL 350 MG/ML 100 ML BTL (for RAD DIAG) OTHER ONE (10:58)
[2016-06-19] MEDS ORDERED: DO NOT ADM ANY ANTICOAGULANT DRUGS XX PRN (11:01)
[2016-06-19] MEDS ORDERED: fentaNYL CITRATE 250 MCG/5 ML AMP ONE (11:11)
--- NOTE | 2016-06-19 11:15 | RADRPT ---
EXAM DATE/TIME: 06/19/2016 10:06 [facility] COMPARISON: No previous studies available for comparison. INDICATIONS : Obstruction FLUORO TIME: 3.9 minutes IMAGE COUNT: 3 CONTRAST: Instilled by Ordering Physician MEDICAL HISTORY : Hypertension. Diabetes mellitus type II. SURGICAL HISTORY : Cholecystectomy. ENCOUNTER: Initial ACUITY: 4 - 6 days PAIN SCORE: Non-responsive. LOCATION: Abdomen FINDINGS: An ERCP was performed by the ordering physician. The images demonstrate a dilated common bile duct. No definite filling defects are identified. CONCLUSION: ERCP as above. Gómez Candelaria MD on June 19, 2016 at 11:13 Board Certified Radiologist. This report was verified electronically.
--- NOTE | 2016-06-19 11:17 | PD.PROCEDR ---
GI Procedure REFERRING PHYSICIAN Dr. Palencia PROCEDURE PERFORMED ERCP with sphincterotomy and balloon extraction INDICATION FOR PROCEDURE Obstructive jaundice PROCEDURE: The procedure, risks and benefits were discussed with Mr. Napoles and informed consent was obtained. Anesthesia sedated him with Diprivan. He was placed in the left lateral decubitus position. ERCP: Patient was placed in a prone position. The Pentax videoscope was introduced through the oropharynx and advanced to the second portion of the duodenum where the ampula was identified. [] FINDINGS: The ampulla appeared to be unremarkable and within normal limits we were able to obtain easy cannulation of the common bile duct appeared to be somewhat dilated with noted filling defect in the distal portion a generous sphincterotomy was performed and using a 15 mm balloon we were able to extract the filling defect of stone and fragments of stone and sludge were noted coming out in addition to puss suggesting that the patient was developing nor had developed cholangitis the bile duct was lavaged and cleared of any filling defects the intrahepatics were unremarkable the gallbladder was not seen ESTIMATED BLOOD LOSS: None SPECIMENS REMOVED: None COMPLICATIONS: None IMPRESSION: Choledocholithiasis PLAN: Supportive care Monitor labs Clear liquid diet for today If all is stable and improving tomorrow May advance diet and possibly discharge home Brennan Bonilla MD Jun 19, 2016 11:17
[2016-06-19 11:35] LABS: HEMOGLOBIN A1a 1.5 %; HEMOGLOBIN A1b 1.2 %; HEMOGLOBIN Ao 82.4 %; HEMOGLOBIN LA1C 2.3 %
[2016-06-20] VITALS (9 sets, daily range): BP systolic 125–145; BP diastolic 66–77; PULSE 72–86; RESP 18–26; TEMP 97.9–98.2; O2SAT 90–95
[2016-06-20] MEDS: PIPERACIL-TAZO 3.375 GM PREMIX 50 ML IV SCH ×4 (01:10→17:28)
[2016-06-20] MEDS: LACTATED RINGER'S 1000 ML IV SCH (02:15)
[2016-06-20] MEDS: INSULIN ASPART SUPPLEMENTAL SCALE SQ SCH ×4 (06:18→21:00)
[2016-06-20 07:07] LABS: AUTOMATED NEUTROPHIL # 6.9 TH/MM3 (1.8-7.7); BASOPHIL # 0.1 TH/MM3 (0-0.2); BASOPHIL % 0.7 % (0.0-2.0); EOSINOPHIL # 0.1 TH/MM3 (0-0.4); EOSINOPHIL % 0.9 % (0.0-4.0); HEMATOCRIT 37.8 % (39.0-51.0); HEMO FLAGS DIFF FINAL; LYMPHOCYTE # 1.6 TH/MM3 (1.0-4.8); MEAN CELL VOLUME 87.2 FL (80.0-100.0); MEAN CORPUSCULAR HEMOGLOBIN 29.5 PG (27.0-34.0); MEAN CORPUSCULAR HGB CONC 33.9 % (32.0-36.0); MONO % 14.1 % (0.0-8.0); NEUT % 68.3 % (16.0-70.0); PLATELET COUNT 226 TH/MM3 (150-450); RED BLOOD COUNT 4.33 MIL/MM3 (4.50-5.90); RED CELL DISTRIBUTION WIDTH 14.7 % (11.6-17.2)
[2016-06-20 07:50] LABS: ALKALINE PHOSPHATASE 166 U/L (45-117); ALT (GPT) 135 U/L (12-78); ANION GAP 12 MEQ/L (5-15); AST (GOT) 133 U/L (15-37); BICARBONATE 22.3 MEQ/L (21.0-32.0); BLOOD UREA NITROGEN 14 MG/DL (7-18); CHLORIDE 103 MEQ/L (98-107); GLOMERULAR FILTRATION RATE 130 ML/MIN (>89); SODIUM (NA) 137 MEQ/L (136-145); TOTAL BILIRUBIN ADULT 8.5 MG/DL (0.2-1.0)
[2016-06-20 07:58] LABS: POTASSIUM 4.2 MEQ/L (3.5-5.1)
[2016-06-20] MEDS: SODIUM CHLOR 0.9% 1000 ML INJ 1,000 ML IV SCH ×2 (08:00→17:30)
--- NOTE | 2016-06-20 08:52 | HHI.PR ---
Subjective Remarks Follow-up CBD obstruction/hyperbilirubinemia 06/18/16-patient seen and examined, still some abdominal pain although controlled since admission. Currently nothing by mouth pending ERCP 06/19/16-patient seen and examined. ERCP was postponed until today. Still with some abdominal pain. No nausea and vomiting. Currently nothing by mouth 06/20/16-patient seen and examined; status post ERCP 06/19/16. Currently tolerating clear without any competition of abdominal pain. LFTs trending up Objective Vitals Vital Signs Date Time Temp Pulse Resp B/P Pulse Ox O2 Delivery O2 Flow Rate FiO2 06/20/16 08:00 97.9 78 24 142/71 90 06/20/16 04:00 98.2 79 18 136/70 95 06/20/16 00:00 98.1 73 18 138/68 95 06/19/16 20:10 Nasal Cannula 4.00 06/19/16 20:00 98.5 80 17 134/72 91 06/19/16 19:50 78 06/19/16 16:00 98.0 75 20 124/63 30 06/19/16 12:00 97.8 80 20 147/70 95 06/19/16 11:30 98.5 88 12 155/89 94 Nasal Cannula 3 06/19/16 11:15 108 12 139/70 94 Nasal Cannula 3 06/19/16 11:02 98.5 83 12 136/77 98 Nasal Cannula 3 I/O 06/19/16 06/19/16 06/19/16 06/20/16 06/20/16 06/20/16 06:59 14:59 22:59 06:59 14:59 22:59 Intake Total 1535 ml 502 ml 100 ml 100 ml Output Total 400 ml 100 ml 150 ml Balance 1135 ml 402 ml 100 ml -50 ml Intake Oral 100 ml 100 ml 100 ml IV Total 1435 ml 102 ml Other 400 ml Output Urine Total 400 ml 100 ml 150 ml # Voids 0 1 # Bowel Movements 0 1 0 0 Result Diagram: 06/20/16 0606 06/20/16 0606 Imaging Last Impressions GI Procedure 06/19/16 0000 Signed Impressions: Service Date/Time: Sunday, June 19, 2016 10:06 - CONCLUSION: ERCP as above. Gómez Candelaria MD Abdomen/Pelvis CT 06/17/16 1646 Signed Impressions: Service Date/Time: Friday, June 17, 2016 17:54 - CONCLUSION: 1. Dilated intra and extrahepatic biliary ductal dilatation with a questionable filling defect at the distal common bile duct. This could be further evaluated with an ERCP or an MRCP. The dilatation of the bile duct can be secondary to a reservoir phenomenon following cholecystectomy. 2. Fatty infiltration of the liver. 3. Scattered colonic diverticula in the sigmoid region. Casey Ruvalcaba MD Objective Remarks GENERAL: NAD SKIN: Warm and dry. HEAD: Normocephalic. EYES: No scleral icterus. No injection or drainage. NECK: Supple, trachea midline. No JVD or lymphadenopathy. CARDIOVASCULAR: Regular rate and rhythm without murmurs, gallops, or rubs. RESPIRATORY: Breath sounds equal bilaterally. No accessory muscle use. GASTROINTESTINAL: Abdomen soft, non tender, nondistended. +BS MUSCULOSKELETAL: No cyanosis, or edema. BACK: Nontender without obvious deformity. No CVA tenderness. Procedures ERCP with sphincterectomy 06/19/16 A/P Problem List: (1) Hyperbilirubinemia ICD Code: E80.6 Status: Acute (2) Common bile duct obstruction ICD Code: K83.1 Status: Acute (3) Lactic acidosis ICD Code: E87.2 Status: Acute (4) Leukocytosis ICD Code: D72.829 Status: Acute (5) DM (diabetes mellitus) ICD Code: E11.9 Status: Acute Assessment and Plan 80-year-old male with 1. CBD Obstruction: CT Abd/Pelvis w/ dilated intra-and extra hepatic biliary ductal dilatation with questionable filling defect at distal CBD. s/p ERCP with sphincterectomy 06/19/16 by Gastroenterology, Dr. Bonilla.LFTs and total bili trending up post procedure, continue with Zosyn IV, Analgesics/antiemetics as needed. Will advance diet to full liquid 2. Hyperbilirubinemia: secondary to above w/ possible CBD obstruction. ERCP with sphincterectomy 06/19/16. Monitor T bili and CMP tomorrow on 06/21/15 3. Lactic Acidosis: Now resolved 4. DM: Sliding scale w/ Accu-Cheks. hemoglobin A1c 7.2; resume basal insulin 60 units at bedtime and oral hypoglycemic agent. 5. Hypokalemia: Resolved status post replacement 6. DVT Prophylaxis: SCD/Teds. Bruno Palencia MD Jun 20, 2016 08:52
[2016-06-20] MEDS: SODIUM CHLORIDE 0.9% FLUSH 5 ML FLUSH FLUSH SCH ×2 (09:00→21:02)
[2016-06-20] MEDS ORDERED: metFORMIN HCL 500 MG TAB PO SCH (09:00)
--- NOTE | 2016-06-20 10:52 | HHI.GIFU ---
Subjective Remarks Up in chair. No n/v, no abdominal pain. States he is having some shortness of breath with exertion today. Getting breathing treatment. Tolerating full liquids. (Alessandra Hernandez) Objective Vitals I&O Vital Signs Date Time Temp Pulse Resp B/P Pulse Ox O2 Delivery O2 Flow Rate FiO2 06/20/16 10:28 92 2.00 21 06/20/16 08:10 72 06/20/16 08:10 Nasal Cannula 4.00 06/20/16 08:00 97.9 78 24 142/71 90 06/20/16 04:00 98.2 79 18 136/70 95 06/20/16 00:00 98.1 73 18 138/68 95 06/19/16 20:10 Nasal Cannula 4.00 06/19/16 20:00 98.5 80 17 134/72 91 06/19/16 19:50 78 06/19/16 16:00 98.0 75 20 124/63 30 06/19/16 12:00 97.8 80 20 147/70 95 06/19/16 11:30 98.5 88 12 155/89 94 Nasal Cannula 3 06/19/16 11:15 108 12 139/70 94 Nasal Cannula 3 06/19/16 11:02 98.5 83 12 136/77 98 Nasal Cannula 3 I/O 06/19/16 06/19/16 06/19/16 06/20/16 06/20/16 06/20/16 07:00 15:00 23:00 07:00 15:00 23:00 Intake Total 1535 ml 502 ml 100 ml 100 ml Output Total 400 ml 100 ml 150 ml Balance 1135 ml 402 ml 100 ml -50 ml Intake Oral 100 ml 100 ml 100 ml IV Total 1435 ml 102 ml Other 400 ml Output Urine Total 400 ml 100 ml 150 ml # Voids 0 1 # Bowel Movements 0 1 0 0 Laboratory Laboratory Tests Test 06/20/16 06:06 White Blood Count 10.0 Red Blood Count 4.33 Hemoglobin 12.8 Hematocrit 37.8 Mean Corpuscular Volume 87.2 Mean Corpuscular Hemoglobin 29.5 Mean Corpuscular Hemoglobin 33.9 Concent Red Cell Distribution Width 14.7 Platelet Count 226 Mean Platelet Volume 9.8 Neutrophils (%) (Auto) 68.3 Lymphocytes (%) (Auto) 16.0 Monocytes (%) (Auto) 14.1 Eosinophils (%) (Auto) 0.9 Basophils (%) (Auto) 0.7 Neutrophils # (Auto) 6.9 Lymphocytes # (Auto) 1.6 Monocytes # (Auto) 1.4 Eosinophils # (Auto) 0.1 Basophils # (Auto) 0.1 CBC Comment DIFF FINAL Differential Comment Sodium Level 137 Potassium Level 4.2 Chloride Level 103 Carbon Dioxide Level 22.3 Anion Gap 12 Blood Urea Nitrogen 14 Creatinine 0.60 Estimat Glomerular Filtration 130 Rate Random Glucose 138 Calcium Level 8.3 Total Bilirubin 8.5 Aspartate Amino Transf 133 (AST/SGOT) Alanine Aminotransferase 135 (ALT/SGPT) Alkaline Phosphatase 166 Total Protein 6.7 Albumin 2.3 Imaging Last Impressions GI Procedure 06/19/16 0000 Signed Impressions: Service Date/Time: Sunday, June 19, 2016 10:06 - CONCLUSION: ERCP as above. Gómez Candelaria MD Abdomen/Pelvis CT 06/17/16 1646 Signed Impressions: Service Date/Time: Friday, June 17, 2016 17:54 - CONCLUSION: 1. Dilated intra and extrahepatic biliary ductal dilatation with a questionable filling defect at the distal common bile duct. This could be further evaluated with an ERCP or an MRCP. The dilatation of the bile duct can be secondary to a reservoir phenomenon following cholecystectomy. 2. Fatty infiltration of the liver. 3. Scattered colonic diverticula in the sigmoid region. Casey Ruvalcaba MD Physical Exam HEENT: Normocephalic; atraumatic; no jaundice. CHEST: Resp. Shallow, even. Expiratory wheezing. CARDIAC: RRR ABDOMEN: Soft, mildly bloated, nontender; no hepatosplenomegaly; bowel sounds are present in all four quadrants. EXTREMITIES: No clubbing, cyanosis, or edema. SKIN: Normal; no rash; no jaundice. LINUX DEVELOPER: No focal deficits; alert and oriented times three. (Alessandra Hernandez [facility]) Assessment and Plan Plan ASSESSMENT: - Biliary obstruction with abdominal pain. S/P cholecystectomy in October of 2015 due to gallstones. Abdomen/Pelvis CT (06/17/16)----> 1. Dilated intra and extrahepatic biliary ductal dilatation with a questionable filling defect at the distal common bile duct. This could be further evaluated with an ERCP or an MRCP. The dilatation of the bile duct can be secondary to a reservoir phenomenon following cholecystectomy. 2. Fatty infiltration of the liver. 3. Scattered colonic diverticula in the sigmoid region. S/P ERCP with sphincterotomy and balloon extraction (06/19/16)---> Choledocholithiasis. Clinically, much improved although still with persistent elevation of LFTs- T. Bili 8.3, AST 133, ALT 135, Alk Phosph 166. Will advance diet and recheck LFTs in am. - Elevated LFTs/Hyperbilirubinemia secondary to choledocholithiasis. S/P ERCP with sphincterotomy/balloon extraction as above. Will recheck in am. - Lactic Acidosis/leukocytosis/ fever: Improved. - DM, HTN per attending Plan: - Heart healthy diabetic diet - LFTs in am - Zosyn - Supportive care - Further recommendation to follow based on results above - Patient seen and examined by Dr. Granger and myself and this note is written on his behalf. (Alessandra Hernandez) Physician Comments Seen and examined, extremely hard of hearing, reports no pain. LFTs still elevated. Recheck tomorrow, if still elevated consider HIDA scan. (Dm Granger MD) Alessandra Heranndez Jun 20, 2016 10:52 Dm Granger MD Jun 20, 2016 15:45
[2016-06-20] MEDS ORDERED: INSULIN DETEMIR 100 UNITS/ML VIAL SQ SCH (21:00)
[2016-06-20] MEDS: MORPHINE SULFATE 4 MG/ML INJ IV PRN (21:02)
[2016-06-21] VITALS: BP 142/67; PULSE 75; RESP 24; TEMP 98.5; O2SAT 93
[2016-06-21] MEDS: PIPERACIL-TAZO 3.375 GM PREMIX 50 ML IV SCH ×2 (01:36→06:20)
[2016-06-21 01:41] VITALS: O2SAT 92
[2016-06-21] MEDS: LACTATED RINGER'S 1000 ML IV SCH (02:15)
[2016-06-21] MEDS: SODIUM CHLOR 0.9% 1000 ML INJ 1,000 ML IV SCH (03:05)
[2016-06-21 05:10] VITALS: BP_SYST 152; PULSE 74; RESP 22; TEMP 97.3; O2SAT 91
[2016-06-21] MEDS: INSULIN ASPART SUPPLEMENTAL SCALE SQ SCH ×2 (06:18→11:00)
[2016-06-21 07:18] VITALS: O2SAT 99
[2016-06-21 07:25] LABS: ALKALINE PHOSPHATASE 174 U/L (45-117); ALT (GPT) 128 U/L (12-78); ANION GAP 7 MEQ/L (5-15); AST (GOT) 105 U/L (15-37); BICARBONATE 26.9 MEQ/L (21.0-32.0); BLOOD UREA NITROGEN 12 MG/DL (7-18); CHLORIDE 106 MEQ/L (98-107); GLOMERULAR FILTRATION RATE 118 ML/MIN (>89); POTASSIUM 3.1 MEQ/L (3.5-5.1); SODIUM (NA) 140 MEQ/L (136-145); TOTAL BILIRUBIN ADULT 5.8 MG/DL (0.2-1.0)
[2016-06-21 08:00] VITALS: BP 147/72; PULSE 68; PULSE 80; RESP 20; TEMP 98; O2SAT 98
--- NOTE | 2016-06-21 08:24 | HHI.PR ---
Subjective Remarks Follow-up CBD obstruction/hyperbilirubinemia 06/18/16-patient seen and examined, still some abdominal pain although controlled since admission. Currently nothing by mouth pending ERCP 06/19/16-patient seen and examined. ERCP was postponed until today. Still with some abdominal pain. No nausea and vomiting. Currently nothing by mouth 06/20/16-patient seen and examined; status post ERCP 06/19/16. Currently tolerating clear without any competition of abdominal pain. LFTs trending up 06/21/16-she seen and examined, denies any abdominal pain. LFTs and total bili trending down. Objective Vitals Vital Signs Date Time Temp Pulse Resp B/P Pulse Ox O2 Delivery O2 Flow Rate FiO2 06/21/16 07:18 99 Nasal Cannula 1.00 06/21/16 05:10 97.3 74 22 152/ 91 06/21/16 01:41 92 Nasal Cannula 4.00 06/21/16 00:00 98.5 75 24 142/67 93 06/20/16 21:00 77 06/20/16 19:40 97.9 86 26 125/77 92 06/20/16 16:00 98.1 78 20 145/68 92 06/20/16 12:00 98.2 77 24 132/66 94 06/20/16 10:28 92 2.00 21 I/O 06/20/16 06/20/16 06/20/16 06/21/16 06/21/16 06/21/16 07:00 15:00 23:00 07:00 15:00 23:00 Intake Total 100 ml 600 ml 480 ml 0 ml Output Total 150 ml 425 ml 200 ml Balance -50 ml 600 ml 55 ml -200 ml Intake Oral 100 ml 600 ml 480 ml 0 ml Output Urine Total 150 ml 425 ml 200 ml # Voids 1 3 # Bowel Movements 0 2 1 0 Result Diagram: 06/20/16 0606 06/21/16 0529 Imaging Last Impressions GI Procedure 06/19/16 0000 Signed Impressions: Service Date/Time: Sunday, June 19, 2016 10:06 - CONCLUSION: ERCP as above. Gómez Candelaria MD Abdomen/Pelvis CT 06/17/16 1646 Signed Impressions: Service Date/Time: Friday, June 17, 2016 17:54 - CONCLUSION: 1. Dilated intra and extrahepatic biliary ductal dilatation with a questionable filling defect at the distal common bile duct. This could be further evaluated with an ERCP or an MRCP. The dilatation of the bile duct can be secondary to a reservoir phenomenon following cholecystectomy. 2. Fatty infiltration of the liver. 3. Scattered colonic diverticula in the sigmoid region. Casey Ruvalcaba MD Objective Remarks GENERAL: NAD SKIN: Warm and dry. HEAD: Normocephalic. EYES: No scleral icterus. No injection or drainage. NECK: Supple, trachea midline. No JVD or lymphadenopathy. CARDIOVASCULAR: Regular rate and rhythm without murmurs, gallops, or rubs. RESPIRATORY: Breath sounds equal bilaterally. No accessory muscle use. GASTROINTESTINAL: Abdomen soft, non tender, nondistended. +BS MUSCULOSKELETAL: No cyanosis, or edema. BACK: Nontender without obvious deformity. No CVA tenderness. Procedures ERCP with sphincterectomy 06/19/16 A/P Problem List: (1) Hyperbilirubinemia ICD Code: E80.6 Status: Acute (2) Common bile duct obstruction ICD Code: K83.1 Status: Acute (3) Lactic acidosis ICD Code: E87.2 Status: Acute (4) Leukocytosis ICD Code: D72.829 Status: Acute (5) DM (diabetes mellitus) ICD Code: E11.9 Status: Acute Assessment and Plan 80-year-old male with 1. CBD Obstruction: CT Abd/Pelvis w/ dilated intra-and extra hepatic biliary ductal dilatation with questionable filling defect at distal CBD. s/p ERCP with sphincterectomy 06/19/16 by Gastroenterology, Dr. Bonilla.LFTs and total bili trending down now , continue with Zosyn IV, Analgesics/antiemetics as needed. Will advance diet to full liquid 2. Hyperbilirubinemia: secondary to above w/ possible CBD obstruction. ERCP with sphincterectomy 06/19/16 and total bili, LFTs trending down now. 3. Lactic Acidosis: Now resolved 4. DM: Sliding scale w/ Accu-Cheks. hemoglobin A1c 7.2; continue basal insulin 60 units at bedtime and oral hypoglycemic agent. 5. Hypokalemia: Resolved status post replacement 6. DVT Prophylaxis: SCD/Teds. Bruno Palencia MD Jun 21, 2016 08:24
--- NOTE | 2016-06-21 08:28 | HHI.DS ---
Discharge Summary Admission Date Jun 17, 2016 at 19:34 Discharge Date: Jun 21, 2016 Admitting Diagnosis lactic acidosis, hyperbilirubinemia, possible CBD obstruction (1) Hyperbilirubinemia ICD Code: E80.6 (2) Common bile duct obstruction ICD Code: K83.1 (3) Lactic acidosis ICD Code: E87.2 (4) Leukocytosis ICD Code: D72.829 (5) DM (diabetes mellitus) ICD Code: E11.9 Procedures ERCP with sphincterectomy 06/19/16 Brief History - From Admission This is an 80-year-old male with a PMH of HTN and DM who came to the ER with complaints of abdominal pain x3 days w/ associated subjective fever, chills. Denies nausea, vomiting or diarrhea. On arrival, BP 146/65, HR 86, O2 sat 98% on RA, Afebrile. WBC 11.7. Platelets 138, no previous labs for comparison. K + 3.3. Lactic Acid 2.2. LFTs elevated, no previous labs for comparison. CT Abd/Pelvis w/ dilated intra-and extrahepatic biliary ductal dilatation with questionable filling defect at distal CBD. Dr. Bonilla w/ GI consulted by ER physician, recommended IV Abx and will eval in am for ERCP. S/p Zosyn IV in ER. CBC/BMP: 06/20/16 0606 06/21/16 0529 Significant Findings Laboratory Tests Test 06/19/16 06/20/16 06/21/16 05:36 06:06 05:29 Red Blood Count 4.22 MIL/MM3 4.33 MIL/MM3 (4.50-5.90) (4.50-5.90) Hemoglobin 12.5 GM/DL 12.8 GM/DL (13.0-17.0) (13.0-17.0) Hematocrit 36.8 % 37.8 % (39.0-51.0) (39.0-51.0) Platelet Count 140 TH/MM3 (150-450) Monocytes (%) (Auto) 16.4 % 14.1 % (0.0-8.0) (0.0-8.0) Monocytes # (Auto) 1.4 TH/MM3 1.4 TH/MM3 (0-0.9) (0-0.9) Random Glucose 133 MG/DL 138 MG/DL (74-106) (74-106) Hemoglobin A1c 7.2 % (4.3-6.0) Calcium Level 8.2 MG/DL 8.3 MG/DL 8.4 MG/DL (8.5-10.1) (8.5-10.1) (8.5-10.1) Total Bilirubin 7.9 MG/DL 8.5 MG/DL 5.8 MG/DL (0.2-1.0) (0.2-1.0) (0.2-1.0) Aspartate Amino Transf 82 U/L (15-37) 133 U/L (15-37) 105 U/L (15-37) (AST/SGOT) Alanine Aminotransferase 116 U/L (12-78) 135 U/L (12-78) 128 U/L (12-78) (ALT/SGPT) Alkaline Phosphatase 140 U/L 166 U/L 174 U/L (45-117) (45-117) (45-117) Total Protein 6.3 GM/DL (6.4-8.2) Albumin 2.4 GM/DL 2.3 GM/DL 2.4 GM/DL (3.4-5.0) (3.4-5.0) (3.4-5.0) Potassium Level 3.1 MEQ/L (3.5-5.1) Imaging Last Impressions GI Procedure 06/19/16 0000 Signed Impressions: Service Date/Time: Sunday, June 19, 2016 10:06 - CONCLUSION: ERCP as above. Gómez Candelaria MD Abdomen/Pelvis CT 06/17/16 1646 Signed Impressions: Service Date/Time: Friday, June 17, 2016 17:54 - CONCLUSION: 1. Dilated intra and extrahepatic biliary ductal dilatation with a questionable filling defect at the distal common bile duct. This could be further evaluated with an ERCP or an MRCP. The dilatation of the bile duct can be secondary to a reservoir phenomenon following cholecystectomy. 2. Fatty infiltration of the liver. 3. Scattered colonic diverticula in the sigmoid region. Casey Ruvalcaba MD PE at Discharge GENERAL: NAD SKIN: Warm and dry. HEAD: Normocephalic. EYES: No scleral icterus. No injection or drainage. NECK: Supple, trachea midline. No JVD or lymphadenopathy. CARDIOVASCULAR: Regular rate and rhythm without murmurs, gallops, or rubs. RESPIRATORY: Breath sounds equal bilaterally. No accessory muscle use. GASTROINTESTINAL: Abdomen soft, non tender, nondistended. +BS MUSCULOSKELETAL: No cyanosis, or edema. BACK: Nontender without obvious deformity. No CVA tenderness. Hospital Course Patient was admitted secondary to CBD obstruction for which gastroenterology was consulted. He was initially placed on IV antibiotic and pain management was provided and LFTs and Total bili were monitored. Patient underwent ERCP with sphincterectomy on 06/19/16. While admitted, all oral hypoglycemic agents were held and patient was started on sliding scale insulin with fingerstick blood glucose monitoring. As his diet was advanced his home regimen of Lantus was restarted. All electrolyte abnormalities including hypokalemia were replaced accordingly. DVT and GI prophylaxis were provided. Patient's condition improved and vitals remained stable prior to discharge. Pt Condition on Discharge: Stable Discharge Disposition: Discharge Home Discharge Time: <= 30 minutes Discharge Instructions DIET: Follow Instructions for: Diabetic Diet Activities you can perform: Regular-No Restrictions Follow up Referrals: Gastroenterology PCP Follow-up - 1 Week Continued Medications: Aspirin (Aspirin) 81 Mg Chew 81 MG CHEW DAILY Ref 0 TAB Insulin Glargine Inj (Lantus Inj) 1,000 Unit/10 Ml Vial 16 UNITS SQ HS Blood Sugar Management Ref 0 VIAL Metformin (Metformin) 1,000 Mg Tab 1000 MG PO BIDPC With meals Blood Sugar Management #60 Ref 0 TAB ([bp med]) Bruno Palencia MD Jun 21, 2016 08:28
[2016-06-21] MEDS ORDERED: metFORMIN HCL 500 MG TAB PO SCH (09:00)
[2016-06-21] MEDS: SODIUM CHLORIDE 0.9% FLUSH 5 ML FLUSH FLUSH SCH (09:00)
[2016-06-21 12:00] VITALS: BP 151/70; PULSE 80; RESP 20; TEMP 97.2; O2SAT 93
== END 2016-06-21 12:14 | disposition home or self-care (01) | DRG 445 ==
LOC: NEPA 16:20 → NEDA 19:34 → N04A 20:42
PROVIDERS: ADMIT Hospitalist; ATTEND Hospitalist
PROC: 0FC98ZZ Extirpation of Matter from Common Bile Duct, Via Natural or Artificial Opening Endoscopic (ICD-10-PCS; principal; 2016-06-19 10:00)
DX: K80.51 Calculus of bile duct without cholangitis or cholecystitis with obstruction (principal); E87.2 Acidosis; E11.9 Type 2 diabetes mellitus without complications; I10 Essential (primary) hypertension; Z79.84 Long term (current) use of oral hypoglycemic drugs; E87.6 Hypokalemia; Z90.49 Acquired absence of other specified parts of digestive tract; Z79.4 Long term (current) use of insulin; H91.90 Unspecified hearing loss, unspecified ear
CPT/HCPCS: 74177; 74330; 80053; 81001; 82948; 83036; 83605; 83690; 85025; 93005; 94664; 96361; 96365; 96375; C1769; J1815; J2270; J2405; J2543; J3010; J7030; Q9967